=== PATIENT | male | born 1990 | race American Indian/Alaskan Native ===

== ENCOUNTER 2019-02-14 16:14 | Emergency (ER) | payer BC ==
--- NOTE | 2019-02-14 16:32 | Event Note ---
ED Screening Note Date of service: 02/14/19 Time: 16:31 ED Screening Note: 28 y/o male comes in for left lower back pain. No trauma no injury. Pain 4-10. This initial assessment/diagnostic orders/clinical plan/treatment(s) is/are subject to change based on patients health status, clinical progression and re- assessment by fellow clinical providers in the ED. Further treatment and workup at subsequent clinical providers discretion. Patient/guardian urged not to elope from the ED as their condition may be serious if not clinically assessed and managed. Initial orders include:
[2019-02-14 16:33] VITALS: BP 116/68
--- NOTE | 2019-02-14 18:19 | Emergency Department Report ---
ED Back Pain/Injury HPI - General Chief Complaint: Back Pain/Injury Stated Complaint: LOW BACK PAIN Time Seen by Provider: 02/14/19 18:03 Source: patient Limitations: No Limitations - History of Present Illness Initial Comments: Patient is a 28-year-old male who presents the emergency room with complaints of left lower back pain that began earlier today. 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 The patient states it's worse with movement and bending over. He denies any fall, injury, urinary symptoms. he does not report any unilateral numbness or weakness. He does not report any nausea, vomiting, diarrhea, abdominal pain. He denies any past medical history or allergies to medications. - Related Data Previous Rx's Medication Instructions Recorded Last Taken Type Cyclobenzaprine [Flexeril] 10 mg PO QHS PRN #10 tablet 02/14/19 Unknown Rx Naproxen [Naprosyn TAB] 500 mg PO BID PRN #20 tablet 02/14/19 Unknown Rx Prednisone [predniSONE 10 mg 10 mg PO .TAPER #1 tab.ds.pk 02/14/19 Unknown Rx (6-Day Pack, 21 Tabs)] ED Review of Systems ROS: Stated complaint: LOW BACK PAIN Other details as noted in HPI Comment: All other systems reviewed and negative ED Past Medical Hx - Past Medical History Previous Medical History?: No - Surgical History Past Surgical History?: Yes Additional Surgical History: tonsils, ankle, - Social History Smoking Status: Current Every Day Smoker Substance Use Type: Alcohol, Marijuana - Medications Home Medications: Home Medications Medication Instructions Recorded Confirmed Last Taken Type Cyclobenzaprine [Flexeril] 10 mg PO QHS PRN #10 tablet 02/14/19 Unknown Rx Naproxen [Naprosyn TAB] 500 mg PO BID PRN #20 tablet 02/14/19 Unknown Rx Prednisone [predniSONE 10 mg 10 mg PO .TAPER #1 tab.ds.pk 02/14/19 Unknown Rx (6-Day Pack, 21 Tabs)] ED Physical Exam - General Limitations: No Limitations General appearance: alert, in no apparent distress - Head Head exam: Present: atraumatic, normocephalic - Eye Eye exam: Present: normal appearance - ENT ENT exam: Present: mucous membranes moist - Neck Neck exam: Present: normal inspection, full ROM. Absent: tenderness - Respiratory Respiratory exam: Present: normal lung sounds bilaterally. Absent: respiratory distress, wheezes, rales, rhonchi, stridor, chest wall tenderness, accessory muscle use, decreased breath sounds, prolonged expiratory - Cardiovascular Cardiovascular Exam: Present: regular rate, normal rhythm, normal heart sounds. Absent: systolic murmur, diastolic murmur, rubs, gallop - Back Exam Back exam: Present: normal inspection, full ROM, paraspinal tenderness (left lumbar paraspinal TTP, no midline C-spine, T-spine, or L-spine tenderness, no step offs, no deformities). Absent: CVA tenderness (R), CVA tenderness (L), vertebral tenderness - Neurological Exam Neurological exam: Present: alert, oriented X3, CN II-XII intact, normal gait. Absent: motor sensory deficit - Psychiatric Psychiatric exam: Present: normal affect, normal mood - Skin Skin exam: Present: warm, dry, intact ED Course Vital Signs 02/14/19 16:31 Temperature 97.8 F Pulse Rate 66 Respiratory 16 Rate Blood Pressure 116/68 O2 Sat by Pulse 100 Oximetry ED Medical Decision Making - Medical Decision Making Patient is a 28-year-old male who presents the emergency room with complaints of left lower back pain that began earlier today. 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 The patient states it's worse with movement and bending over. He denies any fall, injury, urinary symptoms. he does not report any unilateral numbness or weakness. He does not report any nausea, vomiting, diarrhea, abdominal pain. He denies any past medical history or allergies to medications. on exam: left lumbar paraspinal TTP, no midline C-spine, T-spine, or L-spine tenderness, no step offs, no deformities. examination consistent with a muslce strain. pt given prescription for flexeril, naproxen, and prednisone. advised to please take medication as prescribed. do not drive or operate heavy machinery while taking muscle relaxer. may use ice, rest, heat, epsom salt bath. follow up with a primary care doctor in the next 2-3 days. return to the emergency room for any new or worsening symptoms. - Differential Diagnosis strain, sprain, fx, dislocation, DDD, herniated disc, sciatica Critical care attestation.: If time is entered above; I have spent that time in minutes in the direct care of this critically ill patient, excluding procedure time. ED Disposition Clinical Impression: Low back pain Qualifiers: Chronicity: acute Back pain laterality: left Sciatica presence: without sciatica Qualified Code(s): M54.5 - Low back pain Disposition: TO HOME OR SELFCARE Is pt being admited?: No Does the pt Need Aspirin: No Condition: Stable Instructions: Muscle Strain (ED) Additional Instructions: please take medication as prescribed. do not drive or operate heavy machinery while taking muscle relaxer. may use ice, rest, heat, epsom salt bath. follow up with a primary care doctor in the next 2-3 days. return to the emergency room for any new or worsening symptoms. Prescriptions: Cyclobenzaprine [Flexeril] 10 mg PO QHS PRN #10 tablet PRN Reason: Muscle Spasm Naproxen [Naprosyn TAB] 500 mg PO BID PRN #20 tablet PRN Reason: Pain, Moderate (4-6) Prednisone [predniSONE 10 mg (6-Day Pack, 21 Tabs)] 10 mg PO .TAPER #1 tab.ds.pk Referrals: [facility] [Provider Group] - 2-3 Days [facility] [Outside] - 2-3 Days [facility] [Outside] - 2-3 Days Time of Disposition: 18:18 Print Language: PORTUGUESE
== END 2019-02-14 19:05 | disposition home or self-care (01) ==
LOC: ED 16:14
DX: M54.5 Low back pain (principal); F17.200 Nicotine dependence, unspecified, uncomplicated; F12.90 Cannabis use, unspecified, uncomplicated; Z98.890 Other specified postprocedural states; Z79.899 Other long term (current) drug therapy
CPT/HCPCS: 99282

== ENCOUNTER 2019-07-14 14:06 | Emergency (ER) | payer BC ==
[2019-07-14 14:18] VITALS: BP 116/68
--- NOTE | 2019-07-14 14:20 | Emergency Department Report ---
Blank Doc - Documentation Documentation: 29-year-old male that presents with subjective fever and URI symptoms. This initial assessment/diagnostic orders/clinical plan/treatment(s) is/are subject to change based on patient's health status, clinical progression and re- assessment by fellow clinical providers in the ED. Further treatment and workup at subsequent clinical providers discretion. Patient/guardians urged not to elope from the ED as their condition may be serious if not clinically assessed and managed. Initial orders include: 1- Patient sent to [facility] for further evaluation and treatment 2- CXR
--- NOTE | 2019-07-14 15:08 | XRay Report ---
CHEST 2 VIEWS INDICATION / CLINICAL INFORMATION: cough. COMPARISON: None available. FINDINGS: SUPPORT DEVICES: None. HEART / MEDIASTINUM: No significant abnormality. LUNGS / PLEURA: No significant pulmonary or pleural abnormality. No pneumothorax. ADDITIONAL FINDINGS: No significant additional findings. IMPRESSION: No significant abnormality Signer Name: David Kelly MD FACR Signed: 07/14/2019 3:04 PM Workstation Name: [id number]
--- NOTE | 2019-07-14 15:17 | Emergency Department Report ---
- General Chief Complaint: Upper Respiratory Infection Stated Complaint: POSS FLU Time Seen by Provider: 07/14/19 14:19 Source: patient Mode of arrival: Ambulatory Limitations: No Limitations - History of Present Illness Initial Comments: 29-year-old male with no significant past medical history presents to the ER today complaining of symptoms. Patient states that his symptoms started about 3 days ago. He reports associated productive cough, nasal congestion, and sore throat. He denies any fever or chills. Reports exposure to ill contacts with family members with a cold. Family history of tobacco use. He denies any history of lung or heart disease. He reports no GI or symptoms or any other symptoms at this time. She states that he was not able to go to work on Friday, no Friday, he states that he felt he could have gone to work today, but was not sure and so came in to get checked. MD Complaint: cough, sore throat, rhinorrhea, nasal congestion -: Gradual, days(s) (3) - Related Data Previous Rx's Medication Instructions Recorded Last Taken Type Cyclobenzaprine [Flexeril] 10 mg PO QHS PRN #10 tablet 02/14/19 Unknown Rx Prednisone [predniSONE 10 mg 10 mg PO .TAPER #1 tab.ds.pk 02/14/19 Unknown Rx (6-Day Pack, 21 Tabs)] Benzonatate [Tessalon Perles] 100 mg PO Q8HR PRN #30 capsule 07/14/19 Unknown Rx Fexofenadine/Pseudoephedrine 1 each PO Q12HR #30 tab.er.12h 07/14/19 Unknown Rx [Valorie-D 12 Hour Tablet] Naproxen [Naprosyn TAB] 500 mg PO BID PRN #20 tablet 07/14/19 Unknown Rx Allergies Allergy/AdvReac Type Severity Reaction Status Date / Time No Known Allergies Allergy Unverified 07/14/19 14:09 ED Review of Systems ROS: Stated complaint: POSS FLU Other details as noted in HPI Comment: All other systems reviewed and negative Constitutional: denies: chills, fever, weakness ENT: throat pain, congestion, other (rhinorrhea) Respiratory: cough. denies: shortness of breath, SOB with exertion, SOB at rest, stridor, wheezing Cardiovascular: denies: chest pain Gastrointestinal: denies: nausea, vomiting, diarrhea Genitourinary: denies: urgency, dysuria, frequency, hematuria Musculoskeletal: myalgia Skin: denies: rash Neurological: headache ED Past Medical Hx - Past Medical History Previous Medical History?: No - Surgical History Past Surgical History?: Yes Additional Surgical History: tonsils, ankle, - Social History Smoking Status: Never Smoker Substance Use Type: None - Medications Home Medications: Home Medications Medication Instructions Recorded Confirmed Last Taken Type Cyclobenzaprine [Flexeril] 10 mg PO QHS PRN #10 tablet 02/14/19 Unknown Rx Prednisone [predniSONE 10 mg 10 mg PO .TAPER #1 tab.ds.pk 02/14/19 Unknown Rx (6-Day Pack, 21 Tabs)] Benzonatate [Tessalon Perles] 100 mg PO Q8HR PRN #30 capsule 07/14/19 Unknown Rx Fexofenadine/Pseudoephedrine 1 each PO Q12HR #30 tab.er.12h 07/14/19 Unknown Rx [Valorie-D 12 Hour Tablet] Naproxen [Naprosyn TAB] 500 mg PO BID PRN #20 tablet 07/14/19 Unknown Rx ED Physical Exam - General Limitations: No Limitations General appearance: alert, in no apparent distress - Head Head exam: Present: atraumatic, normocephalic - Eye Eye exam: Present: normal appearance, PERRL, EOMI - ENT ENT exam: Present: normal exam, normal orophraynx, mucous membranes moist - Expanded ENT Exam Expanded TM/Canal exam: Effusion: Right TM, Left TM - Neck Neck exam: Present: normal inspection, lymphadenopathy (anterior cervical ) - Respiratory Respiratory exam: Present: normal lung sounds bilaterally. Absent: respiratory distress, wheezes, rales, rhonchi, stridor, decreased breath sounds, prolonged expiratory - Cardiovascular Cardiovascular Exam: Present: regular rate, normal rhythm, normal heart sounds - GI/Abdominal GI/Abdominal exam: Present: soft. Absent: tenderness, guarding, rebound - Neurological Exam Neurological exam: Present: alert, oriented X3, CN II-XII intact, normal gait - Psychiatric Psychiatric exam: Present: normal mood - Skin Skin exam: Present: intact ED Course Vital Signs 07/14/19 14:15 Temperature 98.0 F Pulse Rate 82 Respiratory 16 Rate Blood Pressure 116/68 O2 Sat by Pulse 100 Oximetry ED Medical Decision Making - Radiology Data Radiology results: report reviewed Ordering Physician: ADRIANA CRUZ NP Date of Service: 07/14/19 Procedure(s): XR chest routine 2V Accession Number(s): [id number] cc: ADRIANA CRUZ NP Fluoro Time In Minutes: CHEST 2 VIEWS INDICATION / CLINICAL INFORMATION: cough. COMPARISON: None available. FINDINGS: SUPPORT DEVICES: None. HEART / MEDIASTINUM: No significant abnormality. LUNGS / PLEURA: No significant pulmonary or pleural abnormality. No pneumothorax. ADDITIONAL FINDINGS: No significant additional findings. IMPRESSION: No significant abnormality Signer Name: Adriana Kelly MD FACR Signed: 07/14/2019 3:04 PM Workstation Name: [id number] Transcribed By: MS Dictated By: Adriana Kelly MD Electronically Authenticated By: Adriana Kelly MD Signed Date/Time: 07/14/19 1504 DD/ 1503 TD/TT: - Medical Decision Making 29-year-old male presents to the ER today complaining of URI symptoms/flulike symptoms. Onset 3 days ago. Patient is not ill-appearing, not toxic, appears well hydrated, he is not in any acute pain or respiratory. VSigns are stable. He is awake alert and oriented 3 and neurologically intact. Suspect viral URI at this time. CXR negative for anything acute. Discussed suspected diagnosis, and treatment plan with patient. H&H stable at this time for discharge. Critical care attestation.: If time is entered above; I have spent that time in minutes in the direct care of this critically ill patient, excluding procedure time. ED Disposition Clinical Impression: Viral upper respiratory infection Disposition: - TO HOME OR SELFCARE Is pt being admited?: No Does the pt Need Aspirin: No Condition: Stable Instructions: Upper Respiratory Infection (ED) Prescriptions: Fexofenadine/Pseudoephedrine [Valorie-D 12 Hour Tablet] 1 each PO Q12HR #30 tab.er.12h Naproxen [Naprosyn TAB] 500 mg PO BID PRN #20 tablet PRN Reason: Pain, Moderate (4-6) Benzonatate [Tessalon Perles] 100 mg PO Q8HR PRN #30 capsule PRN Reason: Cough Referrals: PRIMARY CARE, [Primary Care Provider] - 3-5 Days Forms: Work/School Release Form(ED) Time of Disposition: 15:17
== END 2019-07-14 15:29 | disposition home or self-care (01) ==
LOC: ED 14:06
DX: J06.9 Acute upper respiratory infection, unspecified (principal); Z90.89 Acquired absence of other organs; Z79.899 Other long term (current) drug therapy
CPT/HCPCS: 71046

== ENCOUNTER 2019-07-23 20:00 | Emergency (ER) | payer BC, OTHER ==
[2019-07-23 20:53] VITALS: BP 112/70
== END 2019-07-24 01:30 | disposition left against medical advice (07) ==
LOC: ED 20:00
DX: Z04.1 Encounter for examination and observation following transport accident (principal); Z53.21 Procedure and treatment not carried out due to patient leaving prior to being seen by health care provider